=== PATIENT | female | born 1980 | race Two or more races ===

== ENCOUNTER 2024-09-21 13:18 | Emergency (ER) | payer MEDICAID, SELFPAY ==
[2024-09-21 13:42] VITALS: BP 156/92; PULSE 69; RESP 18; TEMP 36.6; O2SAT 95; BMI 36.1
--- NOTE | 2024-09-21 14:05 | XR_ITS ---
Examination: CT abdomen and pelvis without contrast. Coronal 3-D reconstructions. Sagittal 2-D reconstructions. Date and time of exam:September 21, 2024 administered 1603 hours Comparison May 16, 2024 INDICATIONS: Left-sided flank pain beginning today, history kidney stones CTDI: vol (mGy): 9.79 DLP: (mGycm): 554 Technique: Axial images of the abdomen have been obtained, 3 mm slice thickness Intravenous contrast material has not been administered. Low dose protocols were performed. One or more of the following dose reduction techniques were used; automated exposure control, adjustment of the mA and/or KV according to patient size, use of iterative reconstruction technique. Findings: No focal liver or splenic lesions No gallstones No pancreatic mass Moderate left hydronephrosis secondary to 6.6 mm distal left ureteral calculus Aorta normal size No pericecal inflammatory change Small fat-containing umbilical hernia No bladder calculi, bladder is contracted IMPRESSION: Moderate left hydronephrosis secondary to 6.6 mm distal left ureteral calculus
--- NOTE | 2024-09-21 14:05 | PD.EDRME ---
Rapid Medical Screening Exam RME Arrival date/time: 09/21/24 13:18 44-year-old female presents to the emergency department with complaints of left flank pain history of nephrolithiasis. I have greeted and performed a focused initial assessment of this patient. Initial appropriate labs ordered at this time. A comprehensive ED assessment and evaluation of the patient and analysis of all test and completion of medical decision making process will be conducted by additional ED provider. Chief Complaint: Abdominal Pain Time Seen by Provider: 09/21/24 13:43 Vital signs: Vital Signs Temperature 97.8 F 09/21/24 13:42 Pulse Rate 69 09/21/24 13:42 Respiratory Rate 18 09/21/24 13:42 Blood Pressure 156/92 H 09/21/24 13:42 Pulse Oximetry (%) 95 09/21/24 13:42 Oxygen Delivery Method Room Air 09/21/24 13:42
[2024-09-21 14:31] LABS: Basophils % (Auto) 0 % (0-2.5); Eosinophils # (Auto) 0.1 Thou/mm3 (0.0-0.5); Eosinophils % (Auto) 1 % (0-10); Hematocrit 41.7 % (36.0-46.0); Hemoglobin 13.5 g/dL (12.0-16.0); Immature Granulocytes % (Auto) 1 % (0-0); Immature Granulocytes Auto 0.08 Thou/mm3 (0.00-0.00); Lymphocytes # (Auto) 1.5 Thou/mm3 (1.0-4.8); Lymphocytes % (Auto) 12 % (10-50); Mean Corpuscular HGB Conc 32.4 g/dl (31.0-37.0); Mean Corpuscular Hemoglobin 29.1 pg (25.0-35.0); Mean Corpuscular Volume 90 fL (80-100); Monocytes # (Auto) 0.6 Thou/mm3 (0.0-0.8); Monocytes % (Auto) 4 % (0-12); Neutrophils # (Auto) 10.4 Thou/mm3 (1.8-7.7); Neutrophils % (Auto) 83 % (37-80); Nucleated Red Blood Cell % 0 /100 WBC (0); Platelet Count 312 Thou/mm3 (140-440); Red Blood Count 4.64 Miln/mm3 (4.00-5.20); White Blood Count 12.5 Thou/mm3 (3.6-11.0)
[2024-09-21] MEDS: KETOROLAC INJ 60 MG/2 ML VIAL 30 MG IM (14:39)
[2024-09-21] MEDS: TAMSULOSIN HCL 0.4 MG CAPSULE PO (14:40)
[2024-09-21 15:00] LABS: Alanine Aminotransferase 19 U/L (10-49); Albumin, Serum 5.1 gm/dL (3.5-5.0); Albumin/Globulin Ratio 1.9 (1.2-2.2); Alkaline Phosphatase 106 U/L (46-116); Anion Gap 9 (7-16); Aspartate Amino Transferase 20 U/L (0-34); BUN/Creatinine Ratio 16 Ratio (12-20); Bilirubin,Total 0.8 mg/dL (0.3-1.2); Blood Urea Nitrogen 13 mg/dL (9-23); Calcium 9.8 mg/dL (8.3-10.6); Calcium (Corrected) 9.8 mg/dL (8.5-10.1); Carbon Dioxide 26.6 mMol/L (20.0-31.0); Chloride 102 mMol/L (98-107); Creatinine (Component) 0.8 mg/dL (0.6-1.3); Estimated Creatinine Clearance 87.9 mL/min (>60); Globulin 2.7 gm/dL (2.3-3.5); Glucose 155 mg/dL (74-106); Lipase 40 U/L (12-53); Osmolality,Calculated 278 (275-295); Sodium 138 mMol/L (136-145); Total Protein 7.8 gm/dL (5.7-8.2); eGFR > 60 See Note
[2024-09-21 15:01] LABS: Collection Type, Urine Clean Catch
[2024-09-21 15:50] LABS: Bacteria,Urine Rare; Bilirubin,Urine Negative (Negative); Blood,Urine 1+ (Negative); Calcium Oxalate Crystals,Urine 4+; Color,Urine Lt-Yellow (Lt Yel-Yel); Glucose, Urine Negative (Negative); Ketones,Urine Negative (Negative); Leukocyte Esterase,Urine Negative (Negative); Nitrite,Urine Negative (Negative); Protein,Urine Trace (Neg - Trace); RBC,Urine 3 /hpf (0-3); Specific Gravity,Urine 1.025 (1.001-1.035); Squamous Epithelial Cell,Urine 1 /hpf (0-5); Urobilinogen,Urine Negative mg/dL (0.0-1.0); WBC,Urine < 1 /hpf (0-5)
[2024-09-21 15:52] LABS: Clarity,Urine Hazy (Clear/Hazy)
[2024-09-21 15:53] LABS: HCG Qualitative,Urine Negative
--- NOTE | 2024-09-21 17:34 | PD.EDADULT ---
ED General RME/HPI General Chief complaint: Abdominal Pain Stated complaint: ABD PAIN X AM, FEELS LIKE UTI ; HX UTI Time Seen by Provider: 09/21/24 13:43 Arrival date/time: 09/21/24 13:18 CC: Left flank pain HPI ongoing for the past 2 days, but has a history of kidney stones going back for 6 months. Patient denies nausea vomiting states she has had significant relief after being given pain medicines in the emergency room. Patient is awake alert oriented nontoxic-appearing. RME / HPI RME / HPI narrative: 09/21/24 13:18 44-year-old female presents to the emergency department with complaints of left flank pain history of nephrolithiasis. I have greeted and performed a focused initial assessment of this patient. Initial appropriate labs ordered at this time. A comprehensive ED assessment and evaluation of the patient and analysis of all test and completion of medical decision making process will be conducted by additional ED provider. Related Data Previous Rx's ?Medication ?Instructions ?Recorded acetaminophen 300 mg-codeine 30 mg 1 tab PO Q6H PRN pain #15 tabs 05/16/24 tablet ibuprofen 600 mg tablet 600 mg PO Q6H PRN pain #30 tabs 05/16/24 ondansetron 4 mg disintegrating 4 mg PO Q6H PRN nausea and 05/16/24 tablet vomiting #10 tabs tamsulosin 0.4 mg capsule (Flomax) 0.4 mg PO QDAY #7 caps 05/16/24 ketorolac 10 mg tablet 10 mg PO Q8H #20 tabs 09/21/24 ondansetron 4 mg disintegrating 4 mg PO Q8H #20 tabs 09/21/24 tablet tamsulosin 0.4 mg capsule (Flomax) 0.4 mg PO QDAY #30 caps 09/21/24 Allergies Allergy/AdvReac Type Severity Reaction Status Date / Time NKA* Allergy Uncoded 09/21/24 13:20 Review of Systems Review of Systems Narrative Review of Systems: GEN: No fever, no chills, no weight loss EYES: No discharge, no visual changes, no pain HEENT: No ear pain, no congestion, no sore throat PULM: No shortness of breath, no cough, no congestion CV: No chest pain, no dyspnea on exertion, no palpitations GI: No nausea, no vomiting, no diarrhea, no pain, no constipation : No frequency, no urgency, no dysuria,+ flank pain MUSC/SKEL: No joint pain, no back pain SKIN: No rash PSYCH: No hallucinations, no depression HEME/LYMPH: No easy bleeding or bruising tendencies NEURO: No weakness, no headache Past Medical History Surgical History SURGICAL: Positive Hysterectomy (tubal) and Section Social History SMOKING STATUS: Never smoker SUBSTANCE USE: does not use ED Exam Narrative Physical exam: [General: Obese not in cot no acute distress Head normocephalic HEENT: Within acceptable limits Neck is supple nontender Chest equal chest rise nontender to palpation Respiratory: Clear to auscultation no wheezes crackles or rubs CV: Rate rhythm is regular no murmurs rubs or clicks Abdomen is distended secondary to body habitus soft nontender no masses positive bowel sounds all 4 quadrants Back: Mild left CVA tenderness, no right CVA tenderness with palpation. No spinous process tenderness from cervical spine thoracic and lumbar spine Skin: Intact no petechiae rash induration ulceration or crepitus Extremities: Moving all extremity against resistance cap refill less than 2 seconds neurosensory intact Neuro: Awake alert oriented x3 Glascow coma 15 no focal deficits] Course Quality Measures none Orders Category Date Time Status CT abdomen pelvis wo con Stat Exams 09/21/24 14:05 Completed CBC Stat Lab 09/21/24 14:18 Completed Comprehensive Metabolic Panel Stat Lab 09/21/24 14:18 Completed HCG Qualitative,Urine Stat Lab 09/21/24 14:27 Completed Lipase Stat Lab 09/21/24 14:18 Completed Urinalysis Stat Lab 09/21/24 14:27 Completed Ketorolac Inj [Toradol Inj] Med 09/21/24 14:05 Discontinued 30 mg IM X1 ONE Tamsulosin HCl [Flomax] Med 09/21/24 14:05 Discontinued 0.4 mg PO X1 ONE Vital Signs Vital signs: Vital Signs Temperature 97.8 F 09/21/24 13:42 Pulse Rate 69 09/21/24 13:42 Respiratory Rate 18 09/21/24 13:42 Blood Pressure 156/92 H 09/21/24 13:42 Pulse Oximetry (%) 95 09/21/24 13:42 Oxygen Delivery Method Room Air 09/21/24 13:42 [facility] Patient data External records reviewed:: [facility] previous records Clinical information provided by:: patient Social determinants that could affect healthcare access:: none Patient has the following chronic illnesses:: Urolithiasis How is presenting disease/condition affected by chronic disease/condition?: exacerbated by Evaluation data The following diagnostics were reviewed and interpreted by me:: lab results and radiology exam(s) Lab and/or radiology exams considered but not ordered:: CBC shows a mild leukocytosis no anemia thrombocytopenia CMP shows no acute electrolyte imbalances renal impairment transaminitis or T. bili elevation Urine shows positive RBCs but no signs of infection. CT shows the patient has 6.6 mm stone in the left UVJ. Interpretation Summary: Patient got significant relief with oral medications patient be discharged home to follow-up with urology which she already has an appointment for October 21 or . Medications Medications considered but not ordered:: None Medication administrations:: Medication Administration History Discontinued Medications Ketorolac Tromethamine (Ketorolac Inj 60 Mg/2 Ml Vial) 30 mg IM X1 ONE Stop: 09/21/24 14:06 Last Admin: 09/21/24 14:39 Dose: 30 mg Documented By: Tamsulosin HCl (Tamsulosin Hcl 0.4 Mg Capsule) 0.4 mg PO X1 ONE Stop: 09/21/24 14:06 Last Admin: 09/21/24 14:40 Dose: 0.4 mg Documented By: None Consultations Consultation(s) initiated? (list below): No Diagnosis Differential Diagnosis ED Complaint MDM: Urolithiasis UTI hydroureter Most likely diagnosis given after review of the tests above:: Urolithiasis flank pain Admission Indicated Admission indicated?: not indicated Explain why admission is indicated or not indicated:: Stable for outpatient follow-up Admission Request Was there a request for admission?: No Disposition Plan Disposition Plan: Discharge Discharge Attestation Discharge Attestation: The patient and all family members were given an opportunity to ask questions and understood the discharge instructions. Discharge instructions specifically effects, indications for sooner follow up or return to the emergency department, and the expected course of current diagnosis. Patient condition: Stable Medical Decision Making Differential Diagnosis Differential Diagnosis: Urolithiasis UTI hydroureter Lab Data 09/21/24 14:18 09/21/24 14:18 Labs: Lab Results 09/21/24 09/21/24 Range/Units 14:18 14:27 WBC 12.5 H (3.6-11.0) Thou/mm3 RBC 4.64 (4.00-5.20) Miln/mm3 Hgb 13.5 (12.0-16.0) g/dL Hct 41.7 (36.0-46.0) % MCV 90 (80-100) fL MCH 29.1 (25.0-35.0) pg MCHC 32.4 (31.0-37.0) g/dl RDW Std Deviation 42.0 (36.4-46.3) fL Plt Count 312 (140-440) Thou/mm3 Neut % (Auto) 83 H (37-80) % Lymph % (Auto) 12 (10-50) % [place] % (Auto) 4 (0-12) % Eos % (Auto) 1 (0-10) % Baso % (Auto) 0 (0-2.5) % Neut # (Auto) 10.4 H (1.8-7.7) Thou/mm3 Lymph # (Auto) 1.5 (1.0-4.8) Thou/mm3 [place] # (Auto) 0.6 (0.0-0.8) Thou/mm3 Eos # (Auto) 0.1 (0.0-0.5) Thou/mm3 Baso # (Auto) 0.0 (0.0-0.2) Thou/mm3 Immature Gran # (Auto) 0.08 H (0.00-0.00) Thou/mm3 Absolute Nucleated RBC 0.00 (0.00-0.00) Thou/mm3 Immature Gran % 1 H (0-0) % Nucleated RBC % 0 (0) /100 WBC Sodium 138 (136-145) mMol/L Potassium 4.0 (3.4-5.1) mMol/L Chloride 102 (98-107) mMol/L Carbon Dioxide 26.6 (20.0-31.0) mMol/L Anion Gap 9 (7-16) BUN 13 (9-23) mg/dL Creatinine 0.8 (0.6-1.3) mg/dL Estim Creat Clear Calc 87.9 (>60) mL/min eGFR > 60 (60 - ) See Note BUN/Creatinine Ratio 16 (12-20) Ratio Glucose 155 H (74-106) mg/dL Calculated Osmolality 278 (275-295) Calcium 9.8 (8.3-10.6) mg/dL Corrected Calcium 9.8 (8.5-10.1) mg/dL Total Bilirubin 0.8 (0.3-1.2) mg/dL AST 20 (0-34) U/L ALT 19 (10-49) U/L Alkaline Phosphatase 106 (46-116) U/L Total Protein 7.8 (5.7-8.2) gm/dL Albumin 5.1 H (3.5-5.0) gm/dL Globulin 2.7 (2.3-3.5) gm/dL Albumin/Globulin Ratio 1.9 (1.2-2.2) Lipase 40 (12-53) U/L Ur Collection Type Clean Catch Urine Color Lt-Yellow (Lt Yel-Yel) Urine Clarity Hazy (Clear/Hazy) Urine pH 7.0 (5.0-7.0) Ur Specific [place] 1.025 (1.001-1.035) Urine Protein Trace (Neg - Trace) Urine Glucose (UA) Negative (Negative) Urine Ketones Negative (Negative) Urine Blood 1+ A (Negative) Urine Nitrite Negative (Negative) Urine Bilirubin Negative (Negative) Urine Urobilinogen (Auto) Negative (0.0-1.0) mg/dL Ur Leukocyte Esterase Negative (Negative) Urine RBC 3 (0-3) /hpf Urine WBC < 1 (0-5) /hpf Ur Squamous Epith Cells 1 (0-5) /hpf Calcium Oxalate Crystal 4+ A (None) Urine Bacteria Rare (None) Urine HCG, Qual Negative Discharge Plan Plan Patient Disposition: HOME (Self Care) Patient condition on transfer: Stable Prescriptions/Referrals Prescriptions/Med Rec: New ondansetron 4 mg tablet,disintegrating 4 mg PO Q8H Qty: 20 0RF tamsulosin [Flomax] 0.4 mg capsule 0.4 mg PO QDAY Qty: 30 0RF ketorolac 10 mg tablet 10 mg PO Q8H Qty: 20 0RF Rx Instructions: maximum total duration of 5 days from all oral, intranasal, or parenteral formulations No Action ibuprofen 600 mg tablet 600 mg PO Q6H PRN (Reason: pain) Qty: 30 0RF tamsulosin [Flomax] 0.4 mg capsule 0.4 mg PO QDAY Qty: 7 0RF ondansetron 4 mg tablet,disintegrating 4 mg PO Q6H PRN (Reason: nausea and vomiting) Qty: 10 0RF acetaminophen-codeine 300-30 mg tablet 1 tab PO Q6H PRN (Reason: pain) Qty: 15 0RF Referrals: Darrius Vazquez MD [Physician] - In 1 week No Primary/Family,Physician [Primary Care Provider] - In 1 week Problem List Clinical Impression: Kidney stone Patient/Caregiver Discharge Instructions Education Materials: ED Kidney Stone Undescended No ... Additional Instructions: Take the medications as prescribed drink plenty of water if there is a worsening of symptoms return the emergency room for reevaluation Print Language: Danish Stand Alone Forms: Marcy Award Info., Work/School Release, Patient Portal Info Letter Attestation Attestation The patient was seen by the midlevel practitioner. I, the co-signing physician, was present during the entire ER visit. While I did not physically examine the patient, I was available for consultation as needed.
== END 2024-09-21 21:39 | disposition home or self-care (01) ==
PROVIDERS: Nurse Practitioner Primary Care; Emergency Provider Emergency Medicine
DX: N20.0 Calculus of kidney (principal); D72.829 Elevated white blood cell count, unspecified
CPT/HCPCS: 36415; 74176; 80053; 81001; 81025; 83690; 85025; 96372; 99284; J1885; A9270

== ENCOUNTER → 2024-11-25 | Outpatient (CLI) | payer MEDICAID, SELFPAY ==
--- NOTE | 2024-11-25 15:10 | XR_ITS ---
Examination: Abdomen AP single view Technique: AP portable supine abdomen, single view Exam date and time: November 25, 2024 1552 hours INDICATIONS: History flank pain left kidney stone 6 months FINDINGS: Moderate air and stool in the colon overlies the kidneys No renal or ureteral calculi depicted IMPRESSION: No renal or ureteral calculi noted
== END | disposition home or self-care (01) ==
PROVIDERS: Referring Provider Surgery; Visit Provider Surgery
DX: N20.1 Calculus of ureter (principal)
CPT/HCPCS: 74018

== ENCOUNTER 2024-12-06 16:59 | Emergency (ER) | payer MEDICAID, SELFPAY ==
[2024-12-06 17:01] VITALS: BMI 34.0
[2024-12-06 17:28] VITALS: BP 160/99; PULSE 71; RESP 20; TEMP 36.7; O2SAT 97
--- NOTE | 2024-12-06 17:32 | PD.EDRME ---
Rapid Medical Screening Exam E Arrival date/time: 12/06/24 16:59 This is a 44-year-old female that comes into the emergency room with complaints of kidney stone pain. Patient states she was diagnosed with kidney stones on the left side approximately 2 months ago. Patient did see a urologist the fifth that this month does not remember the name. Patient states she was not having pain at that time. Today patient complains of dysuria and flank pain I have greeted and performed a focused initial assessment of this patient. Initial appropriate labs ordered at this time. A comprehensive ED assessment and evaluation of the patient and analysis of all test and completion of medical decision making process will be conducted by additional ED provider. Chief Complaint: Abdominal Pain Time Seen by Provider: 12/06/24 17:15 Vital signs: Vital Signs Temperature 98.1 F 12/06/24 17:28 Pulse Rate 71 12/06/24 17:28 Respiratory Rate 20 12/06/24 17:28 Blood Pressure 160/99 H 12/06/24 17:28 Pulse Oximetry (%) 97 12/06/24 17:28 Oxygen Delivery Method Room Air 12/06/24 17:28
[2024-12-06 17:53] LABS: Basophils % (Auto) 0 % (0-2.5); Eosinophils # (Auto) 0.2 Thou/mm3 (0.0-0.5); Eosinophils % (Auto) 2 % (0-10); Hematocrit 41.7 % (36.0-46.0); Hemoglobin 13.8 g/dL (12.0-16.0); Immature Granulocytes % (Auto) 0 % (0-0); Immature Granulocytes Auto 0.03 Thou/mm3 (0.00-0.00); Lymphocytes # (Auto) 1.7 Thou/mm3 (1.0-4.8); Lymphocytes % (Auto) 17 % (10-50); Mean Corpuscular HGB Conc 33.1 g/dl (31.0-37.0); Mean Corpuscular Hemoglobin 29.2 pg (25.0-35.0); Mean Corpuscular Volume 88 fL (80-100); Monocytes # (Auto) 0.7 Thou/mm3 (0.0-0.8); Monocytes % (Auto) 7 % (0-12); Neutrophils # (Auto) 7.4 Thou/mm3 (1.8-7.7); Neutrophils % (Auto) 74 % (37-80); Nucleated Red Blood Cell % 0 /100 WBC (0); Platelet Count 287 Thou/mm3 (140-440); RDW Standard Deviation 41.4 fL (36.4-46.3); Red Blood Count 4.73 Miln/mm3 (4.00-5.20)
[2024-12-06 18:20] LABS: Alanine Aminotransferase 25 U/L (10-49); Albumin, Serum 4.7 gm/dL (3.5-5.0); Albumin/Globulin Ratio 1.6 (1.2-2.2); Alkaline Phosphatase 101 U/L (46-116); Anion Gap 6 (7-16); Aspartate Amino Transferase 26 U/L (0-34); BUN/Creatinine Ratio 16 Ratio (12-20); Bilirubin,Total 0.3 mg/dL (0.3-1.2); Blood Urea Nitrogen 16 mg/dL (9-23); Calcium 9.8 mg/dL (8.3-10.6); Calcium (Corrected) 9.8 mg/dL (8.5-10.1); Carbon Dioxide 28.7 mMol/L (20.0-31.0); Chloride 107 mMol/L (98-107); Estimated Creatinine Clearance 73.5 mL/min (>60); Glucose 153 mg/dL (74-106); Lipase 50 U/L (12-53); Osmolality,Calculated 287 (275-295); Sodium 142 mMol/L (136-145); Total Protein 7.7 gm/dL (5.7-8.2); eGFR > 60 See Note
[2024-12-06 18:44] LABS: Collection Type, Urine Voided
[2024-12-06 18:54] LABS: Bilirubin,Urine Negative (Negative); Blood,Urine 1+ (Negative); Clarity,Urine Clear (Clear/Hazy); Color,Urine Lt-Yellow (Lt Yel-Yel); Culture Indicated,Urine Not Indicated; Glucose, Urine Negative (Negative); Hyaline Casts,Urine < 1 /hpf (0-1); Ketones,Urine Negative (Negative); Leukocyte Esterase,Urine Negative (Negative); Nitrite,Urine Negative (Negative); PH,Urine 6.5 (5.0-7.0); Protein,Urine Negative (Neg - Trace); RBC,Urine 37 /hpf (0-3); Specific Gravity,Urine 1.021 (1.001-1.035); Squamous Epithelial Cell,Urine < 1 /hpf (0-5); Urobilinogen,Urine Negative mg/dL (0.0-1.0); WBC,Urine < 1 /hpf (0-5)
--- NOTE | 2024-12-06 19:03 | XR_ITS ---
Examination: CT abdomen and pelvis without contrast. Coronal 3-D reconstructions. Sagittal 2-D reconstructions. Date and time of exam:December 06, 2024 at 1935 hrs. Comparison September 21, 2024 Indications: Sudden onset left-sided flank pain beginning 2 days ago CTDI: vol (mGy): 11.1 DLP: (mGycm): 626 Technique: Axial images of the abdomen have been obtained, 3 mm slice thickness Intravenous contrast material has not been administered. Low dose protocols were performed. One or more of the following dose reduction techniques were used; automated exposure control, adjustment of the mA and/or KV according to patient size, use of iterative reconstruction technique. Findings: No focal liver or splenic lesions No gallstones No pancreatic mass Moderate left hydronephrosis secondary to 7 mm distal left ureteral calculus Aorta normal size No bowel obstruction 20 mm fat-containing hernia Urinary bladder is intact Impression: Moderate left hydronephrosis secondary to 7 mm distal left ureteral calculus
[2024-12-06 19:10] LABS: HCG Qualitative,Urine Negative
[2024-12-06] MEDS: HYDROcodone/APAP 5/325 TABLET 1 TAB PO (20:11)
--- NOTE | 2024-12-06 22:03 | PD.EDABDPN ---
ED Abdominal Pain RME/HPI General Chief Complaint: Abdominal Pain Stated complaint: LEFT ABD PAIN RADIATING TO BACK, POSSIBLE UTI Time seen by provider: 12/06/24 17:15 Arrival date/time: 12/06/24 16:59 44-year-old female past medical history of kidney stones presents emergency department complaining of left flank pain that is been ongoing for 2 months. Patient reports is currently being followed by a urologist. Patient also endorses dysuria. Patient reports recently seen urologist 11/25/2024 and has pending renal ultrasound. Patient denies any fever, chills, vomiting, or any other associated symptom. Source: patient Mode of arrival: ambulatory Limitations: no limitations RME / HPI RME / HPI narrative: 12/06/24 16:59 This is a 44-year-old female that comes into the emergency room with complaints of kidney stone pain. Patient states she was diagnosed with kidney stones on the left side approximately 2 months ago. Patient did see a urologist the fifth that this month does not remember the name. Patient states she was not having pain at that time. Today patient complains of dysuria and flank pain I have greeted and performed a focused initial assessment of this patient. Initial appropriate labs ordered at this time. A comprehensive ED assessment and evaluation of the patient and analysis of all test and completion of medical decision making process will be conducted by additional ED provider. Related Data Previous Rx's ?Medication ?Instructions ?Recorded acetaminophen 300 mg-codeine 30 mg 1 tab PO Q6H PRN pain #15 tabs 05/16/24 tablet ibuprofen 600 mg tablet 600 mg PO Q6H PRN pain #30 tabs 05/16/24 ondansetron 4 mg disintegrating 4 mg PO Q6H PRN nausea and 05/16/24 tablet vomiting #10 tabs tamsulosin 0.4 mg capsule (Flomax) 0.4 mg PO QDAY #7 caps 05/16/24 ketorolac 10 mg tablet 10 mg PO Q8H #20 tabs 09/21/24 ondansetron 4 mg disintegrating 4 mg PO Q8H #20 tabs 09/21/24 tablet tamsulosin 0.4 mg capsule (Flomax) 0.4 mg PO QDAY #30 caps 09/21/24 hydrocodone 5 mg-acetaminophen 325 1 tab PO BID PRN pain #7 tabs 12/06/24 mg tablet tamsulosin 0.4 mg capsule 0.4 mg PO QDAY #4 caps 12/06/24 Allergies Allergy/AdvReac Type Severity Reaction Status Date / Time No Known Allergies Allergy Verified 12/06/24 17:01 Review of Systems Review of Systems Systems Reviewed: All systems reviewed, normal except as documented Constitutional Constitutional: Reports system reviewed and no additional complaints, except as documented, Denies body ache(s), Denies chills and Denies fever(s) Eyes Eyes: Reports system reviewed and no additional complaints, except as documented and Denies change in vision ENT Ears, Nose, Mouth, and Throat: Reports system reviewed and no additional complaints, except as documented, Denies disequilibrium, Denies dizziness, Denies sore throat and Denies vertigo Cardiovascular Cardiovascular: Reports system reviewed and no additional complaints, except as documented, Denies chest pain and Denies dyspnea Respiratory Respiratory: Reports system reviewed and no additional complaints, except as documented, Denies chest congestion, Denies cough and Denies dyspnea Gastrointestinal Gastrointestinal: Reports system reviewed and no additional complaints, except as documented, Reports abdominal pain, Denies nausea and Denies vomiting Genitourinary Genitourinary: Reports other (Dysuria) Musculoskeletal Musculoskeletal: Reports system reviewed and no additional complaints, except as documented, Denies abnormal gait, Denies arthralgias and Reports back pain Integumentary/Breasts Skin/Breast: Reports system reviewed and no additional complaints, except as documented, Denies erythema, Denies rash and Denies wounds Neurologic Neurologic: Reports system reviewed and no additional complaints, except as documented, Denies abnormal gait, Denies disequilibrium, Denies dizziness and Denies vertigo Past Medical History Surgical History SURGICAL: Positive Hysterectomy (tubal) and Section Social History SMOKING STATUS: Never smoker SUBSTANCE USE: does not use ED Exam General Limitations: Present no limitations General appearance: Present alert and in no apparent distress Head Head exam: Present atraumatic Eye Eye exam: Present normal appearance, PERRL and EOMI ENT ENT exam: Present normal exam, normal oropharynx and mucous membranes moist Neck Neck exam: Present normal inspection, full ROM and trachea midline Chest Chest inspection: Present normal inspection and symmetric chest wall rise Respiratory Respiratory exam: Present normal lung sounds bilaterally Cardiovascular Cardiovascular exam: Present regular rate, normal rhythm and normal heart sounds Abdominal Exam Abdominal exam: Present soft and normal bowel sounds Extremities Exam Extremities exam: Present normal inspection and full ROM Back Exam Back exam: Present normal inspection, full ROM and CVA tenderness (L) Neurological Exam Neurological exam: Present alert, oriented X3 and CN II-XII intact Psychiatric Psychiatric exam: Present normal affect and normal mood Skin Skin exam: Present warm, dry, intact and normal color Course Quality Measures none Orders Category Date Time Status CT abdomen pelvis wo con Stat Exams 12/06/24 19:03 Completed CBC Stat Lab 12/06/24 17:45 Completed Comprehensive Metabolic Panel Stat Lab 12/06/24 17:45 Completed HCG Qualitative,Urine Stat Lab 12/06/24 18:35 Completed Lipase Stat Lab 12/06/24 17:45 Completed Urinalysis, C/S if Indicated Stat Lab 12/06/24 18:35 Completed HYDROcodone*/APAP 5/325 [[place] 5/325] Med 12/06/24 19:31 Discontinued 1 tab PO X1 ONE Ketorolac Inj [Toradol Inj] Med 12/06/24 22:28 Discontinued 30 mg IM X1 ONE Vital Signs Vital signs: Vital Signs Temperature 98.1 F 12/06/24 17:28 Pulse Rate 71 12/06/24 17:28 Respiratory Rate 20 12/06/24 17:28 Blood Pressure 160/99 H 12/06/24 17:28 Pulse Oximetry (%) 97 12/06/24 17:28 Oxygen Delivery Method Room Air 12/06/24 17:28 97% room air within normal limits Abdominal Pain MDM MDM Narrative MDM Narrative:: 44-year-old female past medical history of kidney stones presents emergency department complaining of left flank pain that is been ongoing for 2 months. Patient reports is currently being followed by a urologist. Patient also endorses dysuria. Patient reports recently seen urologist 11/25/2024 and has pending renal ultrasound. Patient denies any fever, chills, vomiting, or any other associated symptom. CBC was unremarkable for any leukocytosis or anemia. CMP was unremarkable for any elevated LFTs or gross electrolyte abnormalities. Urinalysis was also unremarkable. CT scan abdomen pelvis without impression: Moderate left hydronephrosis secondary to 7 mm distal left ureteral calculus. Patient appears nontoxic and is hemodynamically stable. Patient reported significant improvement in pain after given pain medication. Patient discharged on pain medication and instructed to have close follow-up with urologist and return immediately to emergency department if she develops any fevers, vomiting, worsening symptoms, or as needed. Patient data External records reviewed:: [facility] previous records Clinical information provided by:: patient Social determinants that could affect healthcare access:: none Patient has the following chronic illnesses:: See chart How is presenting disease/condition affected by chronic disease/condition?: uneffected by Evaluation data The following diagnostics were reviewed and interpreted by me:: lab results and radiology exam(s) Lab and/or radiology exams considered but not ordered:: Ordered Interpretation Summary: Interpreted by me Medications / Prescriptions Medications or Prescriptions considered but not ordered:: Ordered Medication administrations:: Medication Administration History Discontinued Medications Hydrocodone Bitart/Acetaminophen (Hydrocodone/[place]ap 5/325 Tablet) 1 tab PO X1 ONE Stop: 12/06/24 19:32 Last Admin: 12/06/24 20:11 Dose: 1 tab Documented By: MICHELLE Ketorolac Tromethamine (Ketorolac Inj 60 Mg/2 Ml Vial) 30 mg IM X1 ONE Stop: 12/06/24 22:29 Last Admin: 12/06/24 22:39 Dose: 30 mg Documented By: MICHELLE Given Consultations Consultation(s) initiated? (list below): No Diagnosis Differential diagnosis abdominal pain: abdominal pain, acute appendicitis, calculus of kidney, constipation, diverticulitis, endometriosis, gastroenteritis, pancreatitis and small bowel obstruction Most likely diagnosis given after review of the tests above:: Left ureteral calculus Admission Indicated Admission indicated?: not indicated Admission Request Was there a request for admission?: No Disposition Plan Disposition Plan: Discharge Discharge Attestation Discharge Attestation: The patient and all family members were given an opportunity to ask questions and understood the discharge instructions. Discharge instructions specifically effects, indications for sooner follow up or return to the emergency department, and the expected course of current diagnosis. Patient condition: Stable Discharge Plan Plan Patient Disposition: HOME (Self Care) Disposition Comment: Stable Prescriptions/Referrals Prescriptions/Med Rec: New hydrocodone-acetaminophen 5-325 mg tablet 1 tab PO BID MDD 2 tabs PRN (Reason: pain) Qty: 7 0RF tamsulosin 0.4 mg capsule 0.4 mg PO QDAY Qty: 4 0RF No Action ibuprofen 600 mg tablet 600 mg PO Q6H PRN (Reason: pain) Qty: 30 0RF tamsulosin [Flomax] 0.4 mg capsule 0.4 mg PO QDAY Qty: 7 0RF ondansetron 4 mg tablet,disintegrating 4 mg PO Q6H PRN (Reason: nausea and vomiting) Qty: 10 0RF acetaminophen-codeine 300-30 mg tablet 1 tab PO Q6H PRN (Reason: pain) Qty: 15 0RF ondansetron 4 mg tablet,disintegrating 4 mg PO Q8H Qty: 20 0RF tamsulosin [Flomax] 0.4 mg capsule 0.4 mg PO QDAY Qty: 30 0RF ketorolac 10 mg tablet 10 mg PO Q8H Qty: 20 0RF Rx Instructions: maximum total duration of 5 days from all oral, intranasal, or parenteral formulations Referrals: No Primary/Family,Physician [Primary Care Provider] - In 1 week Problem List Clinical Impression: Left ureteral calculus Patient/Caregiver Discharge Instructions Discharge Activity: activity as tolerated Education Materials: Treating Kidney Stones: Medicines, Preventing Kidney Stones, ED Kidney Stone w/ Colic Additional Instructions: Take pain medication as prescribed. Drink plenty of fluids and stay hydrated. Close follow-up with urologist in 2 to 3 days. Return immediately to emergency department for any worsening symptoms or as needed. Print Language: Persian Stand Alone Forms: Marcy Award Info., Patient Portal Info Letter PA/DIABETES CLINICAL MANAGER Supervising Physician PA/DIABETES CLINICAL MANAGER Supervising Physician: Dr. Cook
[2024-12-06] MEDS: KETOROLAC INJ 60 MG/2 ML VIAL 30 MG IM (22:39)
== END 2024-12-06 22:47 | disposition home or self-care (01) ==
PROVIDERS: Nurse Practitioner Family; Emergency Provider Emergency Medicine
DX: N20.2 Calculus of kidney with calculus of ureter (principal)
CPT/HCPCS: 36415; 74176; 80053; 81001; 81025; 83690; 85025; 96372; 99284; J1885; A9270